=== PATIENT | female | born 1995 | race Hispanic/Latino ===

== ENCOUNTER 2018-05-24 16:34 | Emergency (ER) | payer SELFPAY ==
[2018-05-24] MEDS ORDERED: ONDANSETRON 4 MG/2 ML VIAL ONE (18:09)
[2018-05-24] MEDS ORDERED: NA CHLORIDE 0.9% 1,000 ML ONE (18:09)
[2018-05-24 18:18] LABS: Urine Blood 1+ (NEG); Urine Glucose NEGATIVE (NEG); Urine Protein NEGATIVE (NEG); Urine Specific Gravity >1.030 (1.005-1.030)
[2018-05-24 18:19] LABS: Albumin 3.8 g/dL (3.4-5.0); Bilirubin Direct 0.1 mg/dL (0-0.2); Bilirubin Total 0.2 mg/dL (0.2-1.0); Potassium 3.7 mmol/L (3.5-5.1); Protein, Total 7.4 g/dL (6.4-8.2)
[2018-05-24 18:20] LABS: Absolute Lymphocytes (CBC) 1.9 K/uL (0.7-4.9); Basophils % 0.7 % (0-1.3); Eosinophils % 1.3 % (0-4.4); Hematocrit 41.9 % (36.0-45.0); Lymphocytes % 21.1 % (15.3-44.8); MCH 31.7 pg (27.0-35.0); MCV 93.8 fL (80-100); MPV 7.8 fL (7.6-11.3); RBC Red Blood Cell Count 4.47 M/uL (3.86-4.86)
--- NOTE | 2018-05-24 19:02 | ER ---
Nurse's Notes [facility] Name: Nisreen Norman Age: 22 yrs Sex: Female : 1995 Arrival Date: 05/24/2018 Time: 16:42 Bed 15 Private MD: Diagnosis: Urinary tract infection, site not specified;Nausea and vomiting Presentation: 05/24 16:50 Presenting complaint: Patient states: abd pain, subjective fever, and vomiting since sv Wednesday. Transition of care: patient was not received from another setting of care. Onset of symptoms was May 22, 2018. Care prior to arrival: None. 16:50 Method Of Arrival: Ambulatory sv 16:50 Acuity: CAESAR 3 sv 17:15 Risk Assessment: Do you want to hurt yourself or someone else? Patient reports no rb1 desire to harm self or others. Initial Sepsis Screen: Does the patient meet any 2 criteria? No. Patient's initial sepsis screen is negative. Does the patient have a suspected source of infection? No. Patient's initial sepsis screen is negative. 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 rb1 Historical: - Allergies: 16:51 No Known Allergies; sv - Home Meds: 16:51 None [Active]; sv - PMHx: 16:51 None; sv - PSHx: 16:51 None; sv - Immunization history:: Adult Immunizations up to date. - Social history:: Smoking status: Patient/guardian denies using tobacco. - Ebola Screening: : No symptoms or risks identified at this time. Screenin:15 Abuse screen: Denies threats or abuse. Nutritional screening: No deficits noted. rb1 Tuberculosis screening: No symptoms or risk factors identified. Fall Risk None identified. Assessment: 17:15 General: Appears in no apparent distress. comfortable, Behavior is calm, cooperative, rb1 Reports Pt. did not measure her temperature but she felt like she was running an temp. Pain: Complains of pain in abdomen Pain currently is 4 out of 10 on a pain scale. Neuro: Level of Consciousness is awake, alert, obeys commands, Oriented to person, place, time, situation. Cardiovascular: Capillary refill < 3 seconds is brisk in bilateral fingers. Respiratory: Airway is patent Respiratory effort is even, unlabored, Respiratory pattern is regular, symmetrical. GI: Abdomen is flat, Reports nausea, vomiting, since Wednesday. : No signs and/or symptoms were reported regarding the genitourinary system. Derm: Skin is dry, Skin is normal, Skin temperature is warm. 18:15 Reassessment: Patient appears in no apparent distress at this time. No changes from rb1 previously documented assessment. 19:30 Reassessment: Patient appears in no apparent distress at this time. Patient is alert, aa1 oriented x 3, equal unlabored respirations, skin warm/dry/pink. NS bolus completed at this time. Discussed d/c \T\ f/u instructions with pt; denies questions or concerns at this time Patient denies pain at this time. Patient states feeling better. Vital Signs: 16:52 BP 127 / 77; Pulse 95; Resp 18; Temp 98.6; Pulse Ox 98% ; Height 5 ft. 7 in. (170.18 sv cm); Pain 5/10; 18:04 BP 123 / 82; Pulse 79; Resp 17; Pulse Ox 100% on R/A; mh5 19:30 BP 103 / 84; Pulse 77; Resp 16; Pulse Ox 99% on R/A; aa1 ED Course: 16:42 Patient arrived in ED. mr 16:51 Triage completed. sv 16:51 Arm band placed on left wrist. sv 17:15 Patient has correct armband on for positive identification. Bed in low position. Call rb1 light in reach. Side rails up X 1. Pulse ox on. NIBP on. 17:20 Timmy Arnett, DEBBIE is PHCP. pm1 17:20 Gutierrez Smith MD is Attending Physician. pm1 17:28 Sydney Martini, SHARYN is Primary Nurse. rb1 18:02 Initial lab(s) drawn, by ct, sent to lab. Urine collected: clean catch specimen, clear. mh5 Inserted saline lock: 22 gauge in right antecubital area, using aseptic technique. Blood collected. 18:03 Warm blanket given. mh5 18:20 Missed attempt(s): 22 gauge in left antecubital area. rb1 18:20 IV discontinued, intact, bleeding controlled, No redness/swelling at site. Pressure rb1 dressing applied, Discontinued 22 G right AC that was inserted by DAVID Hines tech. 18:29 Inserted saline lock: 22 gauge in right antecubital area, using aseptic technique. ph Blood collected. 19:00 Report given to SHARYN Saldana. rb1 19:30 No provider procedures requiring assistance completed. IV discontinued, intact, aa1 bleeding controlled, No redness/swelling at site. Pressure dressing applied. Administered Medications: 18:29 Drug: Zofran 4 mg Route: IVP; Site: left antecubital; ph 18:45 Follow up: Response: No adverse reaction; Nausea is decreased rb1 18:29 Drug: NS 0.9% 1000 ml Route: IV; Rate: 1000 ml; Site: left antecubital; ph 19:30 Follow up: IV Status: Completed infusion aa1 Outcome: 19:01 Discharge ordered by MD. pm1 19:30 Discharged to home ambulatory, with friend. aa1 19:30 Condition: good 19:30 Discharge instructions given to patient, Instructed on discharge instructions, follow up and referral plans. medication usage, Demonstrated understanding of instructions, follow-up care, medications, Prescriptions given X 2. 19:33 Patient left the ED. aa1 Addendum: 05/27/2018 08:01 Addendum: Culture Results: Positive urine culture. No further action required. Bacteria s s sensitive to prescribed antibiotic. Signatures: Kerry Kebede RN RN Shana Peterson RN RN aa1 Kemi Lazar mr Yaritza Cutler RN RN Nancy Kenyon RN RN Sydney Martini, SHARYN RN [facility] Timmy Arnett, DEBBIE OILSEED MEAT PRESSER pm1 Kemi Cannon [facility] Corrections: (The following items were deleted from the chart) 05/24 19:32 17:15 April, unable to obtain actual date. rb1 rb1 19:36 18:20 IV discontinued, intact, bleeding controlled, No redness/swelling at site. rb1 Pressure dressing applied, 22 G right AC rb1 19:37 18:20 Missed attempt(s): 22 gauge in right antecubital area. rb1 rb1
--- NOTE | 2018-05-24 19:02 | EDPHYS ---
Physician Documentation [facility] Name: Nisreen Norman Age: 22 yrs Sex: Female : 1995 Arrival Date: 05/24/2018 Time: 16:42 Bed 15 Private MD: ED Physician Gutierrez Smith HPI: 05/24 18:00 This 22 yrs old Female presents to ER via Ambulatory with complaints of pm1 Vomiting. 18:00 The patient presents to the emergency department with nausea, vomiting, abdominal pain. pm1 Onset: The symptoms/episode began/occurred 2 day(s) ago. Possible causes: bad food exposure, sick contacts, roommate. The symptoms are aggravated by nothing. The symptoms are alleviated by nothing. Associated signs and symptoms: Pertinent positives: nausea, vomiting, Pertinent negatives: constipation, fever. Severity of symptoms: in the emergency department the symptoms are unchanged. The patient has not experienced similar symptoms in the past. The patient has not recently seen a physician. Patient is here with her friend who is patient in the ER who is having the same symptoms of nausea and vomiting from a possible bad food exposure. 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 rb1 Historical: - Allergies: 16:51 No Known Allergies; sv - Home Meds: 16:51 None [Active]; sv - PMHx: 16:51 None; sv - PSHx: 16:51 None; sv - Immunization history:: Adult Immunizations up to date. - Social history:: Smoking status: Patient/guardian denies using tobacco. - Ebola Screening: : No symptoms or risks identified at this time. ROS: 18:00 Constitutional: Negative for fever, chills, and weight loss, Eyes: Negative for injury, pm1 pain, redness, and discharge, ENT: Negative for injury, pain, and discharge, Neck: Negative for injury, pain, and swelling, Cardiovascular: Negative for chest pain, palpitations, and edema, Respiratory: Negative for shortness of breath, cough, wheezing, and pleuritic chest pain. 18:00 Back: Negative for injury and pain, : Negative for injury, bleeding, discharge, and swelling, MS/Extremity: Negative for injury and deformity, Skin: Negative for injury, rash, and discoloration, Neuro: Negative for headache, weakness, numbness, tingling, and seizure. 18:00 Abdomen/GI: Positive for abdominal pain, nausea and vomiting, Negative for diarrhea. Exam: 18:00 Constitutional: This is a well developed, well nourished patient who is awake, alert, pm1 and in no acute distress. Head/Face: Normocephalic, atraumatic. Eyes: Pupils equal round and reactive to light, extra-ocular motions intact. Lids and lashes normal. Conjunctiva and sclera are non-icteric and not injected. Cornea within normal limits. Periorbital areas with no swelling, redness, or edema. ENT: Nares patent. No nasal discharge, no septal abnormalities noted. Tympanic membranes are normal and external auditory canals are clear. Oropharynx with no redness, swelling, or masses, exudates, or evidence of obstruction, uvula midline. Mucous membranes moist. Neck: Trachea midline, no thyromegaly or masses palpated, and no cervical lymphadenopathy. Supple, full range of motion without nuchal rigidity, or vertebral point tenderness. No Meningismus. Chest/axilla: Normal chest wall appearance and motion. Nontender with no deformity. No lesions are appreciated. Cardiovascular: Regular rate and rhythm with a normal S1 and S2. No gallops, murmurs, or rubs. Normal PMI, no JVD. No pulse deficits. Respiratory: Lungs have equal breath sounds bilaterally, clear to auscultation and percussion. No rales, rhonchi or wheezes noted. No increased work of breathing, no retractions or nasal flaring. 18:00 Back: No spinal tenderness. No costovertebral tenderness. Full range of motion. Skin: Warm, dry with normal turgor. Normal color with no rashes, no lesions, and no evidence of cellulitis. MS/ Extremity: Pulses equal, no cyanosis. Neurovascular intact. Full, normal range of motion. 18:00 Abdomen/GI: Inspection: abdomen appears normal, Bowel sounds: normal, Palpation: abdomen is soft and non-tender, in all quadrants. 18:00 Neuro: Orientation: is normal, Motor: is normal, moves all fours. Vital Signs: 16:52 BP 127 / 77; Pulse 95; Resp 18; Temp 98.6; Pulse Ox 98% ; Height 5 ft. 7 in. (170.18 sv cm); Pain 5/10; 18:04 BP 123 / 82; Pulse 79; Resp 17; Pulse Ox 100% on R/A; mh5 19:30 BP 103 / 84; Pulse 77; Resp 16; Pulse Ox 99% on R/A; aa1 MDM: 17:20 Patient medically screened. pm1 19:00 Data reviewed: vital signs. Data interpreted: Pulse oximetry: on room air is 100 %. pm1 Interpretation: normal. Counseling: I had a detailed discussion with the patient and/or guardian regarding: the historical points, exam findings, and any diagnostic results supporting the discharge/admit diagnosis, lab results, the need for outpatient follow up, to return to the emergency department if symptoms worsen or persist or if there are any questions or concerns that arise at home. 05/24 17:25 Order name: Basic Metabolic Panel; Complete Time: 18:56 pm1 05/24 17:25 Order name: CBC with Diff; Complete Time: 18:56 pm1 05/24 17:25 Order name: Hepatic Function; Complete Time: 18:56 pm1 05/24 17:25 Order name: Lipase; Complete Time: 18:56 pm1 05/24 17:55 Order name: Urine Dipstick--Ancillary (enter results); Complete Time: 18:56 bd 05/24 17:55 Order name: Urine --Ancillary (enter results); Complete Time: 18:56 bd 05/24 17:25 Order name: IV Saline Lock; Complete Time: 18:23 pm1 05/24 17:25 Order name: Labs collected and sent; Complete Time: 18:23 pm1 05/24 17:25 Order name: Urine Dipstick-Ancillary (obtain specimen); Complete Time: 18:23 pm1 05/24 18:56 Order name: Urine Microscopic Only pm1 05/24 18:57 Order name: Urine Microscopic Only; Complete Time: 22:13 EDMS 05/24 19:32 Order name: Urine Culture EDNJ 05/24 17:25 Order name: Urine Test (obtain specimen); Complete Time: 18:23 pm1 Administered Medications: 18:29 Drug: Zofran 4 mg Route: IVP; Site: left antecubital; ph 18:45 Follow up: Response: No adverse reaction; Nausea is decreased rb1 18:29 Drug: NS 0.9% 1000 ml Route: IV; Rate: 1000 ml; Site: left antecubital; ph 19:30 Follow up: IV Status: Completed infusion aa1 Disposition: 20:57 Co-signature as Attending Physician, Gutierrez Smith MD I agree with the assessment and kdr plan of care. Disposition: 05/24/18 19:01 Discharged to Home. Impression: Nausea and vomiting, Urinary tract infection, site not specified. - Condition is Stable. - Discharge Instructions: Food Poisoning, Nausea and Vomiting, Adult, Urinary Tract Infection, Adult, Viral Gastroenteritis, Adult. - Prescriptions for Zofran 4 mg Oral Tablet - take 1 tablet by ORAL route every 12 hours As needed; 20 tablet. Bactrim DS 800- 160 mg Oral Tablet - take 1 tablet by ORAL route every 12 hours for 10 days; 20 tablet. - Work release form, Medication Reconciliation Form, Thank You Letter, Antibiotic Education, Prescription Opioid Use form. - Follow up: Emergency Department; When: As needed; Reason: Worsening of condition. Follow up: Private Physician; When: 2 - 3 days; Reason: Wound Recheck, If symptoms return, Worsening of condition, Continuance of care. - Problem is new. - Symptoms have improved. Signatures: Dispatcher [employer] EDKerry Nina RN RN Shana Peterson RN RN aa1 Gutierrez Smith MD MD [facility] Nancy Kenyon RN RN Timmy Arnett, DEBBIE BACKSIDE GRINDER pm1 Sydney Martini RN rb1 Corrections: (The following items were deleted from the chart) 19:33 19:01 05/24/2018 19:01 Discharged to Home. Impression: Nausea and vomitingUrinary tract aa1 infection, site not specified. Condition is Stable. Forms are Medication Reconciliation Form, Thank You Letter, Antibiotic Education, Prescription Opioid Use. Follow up: Emergency Department; When: As needed; Reason: Worsening of condition. Follow up: Private Physician; When: 2 - 3 days; Reason: Wound Recheck, If symptoms return, Worsening of condition, Continuance of care. Problem is new. Symptoms have improved. pm1
[2018-05-24 19:31] LABS: Urine Bacteria 20-50 /HPF (<20); Urine Culture Reflex Order REFLEXED; Urine RBC <5 /HPF (NONE SEEN)
== END 2018-05-24 19:33 | disposition home or self-care (01) ==
LOC: ER 16:34
DX: N39.0 Urinary tract infection, site not specified (principal)
CPT/HCPCS: 36415; 80048; 80076; 81003; 81015; 81025; 83690; 85025; 87077; 87086; 87088; 87186; 96361; 96374; 99284; J2405; J7030

== ENCOUNTER 2018-07-19 14:57 | Emergency (ER) | payer SELFPAY ==
--- NOTE | 2018-07-19 16:08 | ER ---
Nurse's Notes [facility] Name: Nisreen Norman Age: 22 yrs Sex: Female : 1995 Arrival Date: 07/19/2018 Time: 15:21 Bed 20 Private MD: Diagnosis: Streptococcal pharyngitis Presentation: 07/19 15:26 Presenting complaint: Patient states: Sore throat x 2-3 days, fever, and N/V on first ph day of illness. Transition of care: patient was not received from another setting of care. Onset of symptoms was July 19, 2018. Risk Assessment: Do you want to hurt yourself or someone else? Patient reports no desire to harm self or others. Initial Sepsis Screen: Does the patient meet any 2 criteria? No. Patient's initial sepsis screen is negative. Care prior to arrival: Medication(s) given: Tylenol, at 1200. 15:26 Method Of Arrival: Ambulatory ph 15:26 Acuity: CAESAR 4 ph 15:32 Initial Sepsis Screen: Does the patient have a suspected source of infection? Yes: hj Other: throat. Triage Assessment: 15:32 General: Appears in no apparent distress. uncomfortable, Behavior is calm, cooperative, hj appropriate for age. Pain: Complains of pain in throat. 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 - Social history:: Smoking status: Patient/guardian denies using tobacco, Patient/guardian denies using alcohol. - Ebola Screening: : Patient negative for fever greater than or equal to 101.5 degrees Fahrenheit, and additional compatible Ebola Virus Disease symptoms Patient denies exposure to infectious person Patient denies travel to an Ebola-affected area in the 21 days before illness onset. Screenin:31 Abuse screen: Denies threats or abuse. Denies injuries from another. Nutritional hj screening: No deficits noted. Tuberculosis screening: No symptoms or risk factors identified. Fall Risk None identified. Assessment: 15:31 Pain: Complains of pain in throat. Respiratory: Airway is patent Respiratory effort is hj even, unlabored, Respiratory pattern is regular, symmetrical, Breath sounds are clear. EENT: Throat. Vital Signs: 15:27 BP 130 / 87; Pulse 98; Resp 18; Temp 98.2; Pulse Ox 100% ; Weight 63.5 kg; Height 5 ft. ph 7 in. (170.18 cm); Pain 9/10; 16:20 BP 128 / 85; Pulse 90; Resp 18; Pulse Ox 100% on R/A; hj 15:27 Body Mass Index 21.93 (63.50 kg, 170.18 cm) ph ED Course: 15:21 Patient arrived in ED. rg4 15:23 [facility]C [facility] kb 15:23 Mega Ba MD is Attending Physician. kb 15:27 Triage completed. ph 15:28 Arm band placed on. ph 15:31 Levar Lomeli, RN is Primary Nurse. hj 15:32 Patient has correct armband on for positive identification. Bed in low position. Call hj light in reach. Side rails up X 1. 16:20 No provider procedures requiring assistance completed. Patient did not have IV access hj during this emergency room visit. Administered Medications: 16:08 Drug: Augmentin 875 mg Route: PO; hj 16:18 Follow up: Response: No adverse reaction hj Outcome: 16:08 Discharge ordered by . kb 16:20 Discharged to home ambulatory. hj 16:20 Condition: stable 16:20 Discharge instructions given to patient, Instructed on discharge instructions, follow up and referral plans. medication usage, Demonstrated understanding of instructions, follow-up care, medications, Prescriptions given X 1. 16:21 Patient left the ED. hj Signatures: Rosi Cee FNP-C FNP-Ckb Hall, Patricia, RN RN Levar Lomeli, RN RN Janneth Leos rg4
--- NOTE | 2018-07-19 16:08 | EDPHYS ---
Physician Documentation [facility] Name: Nisreen Norman Age: 22 yrs Sex: Female : 1995 Arrival Date: 07/19/2018 Time: 15:21 Bed 20 Private MD: ED Physician Mega Ba HPI: 07/19 15:35 This 22 yrs old Female presents to ER via Ambulatory with complaints of Sore kb Throat. 15:35 The patient presents with sore throat. The patient describes throat pain as constant. kb Onset: The symptoms/episode began/occurred 3 day(s) ago. Severity of symptoms: At their worst the symptoms were moderate, in the emergency department the symptoms are unchanged. Modifying factors: The symptoms are alleviated by nothing, the symptoms are aggravated by swallowing, Patient's oral intake status: good. Associated signs and symptoms: Pertinent positives: Sore throat Pertinent negatives chest pain, chills, cough, diarrhea, dysphagia, earache, fever, flu-like symptoms, headache, nausea, rhinorrhea, shortness of breath, vomiting. The patient has not experienced similar symptoms in the past. The patient has not recently seen a physician. 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 - Social history:: Smoking status: Patient/guardian denies using tobacco, Patient/guardian denies using alcohol. - Ebola Screening: : Patient negative for fever greater than or equal to 101.5 degrees Fahrenheit, and additional compatible Ebola Virus Disease symptoms Patient denies exposure to infectious person Patient denies travel to an Ebola-affected area in the 21 days before illness onset. ROS: 15:35 Constitutional: Negative for fever, chills, and weight loss, Cardiovascular: Negative kb for chest pain, palpitations, and edema, Respiratory: Negative for shortness of breath, cough, wheezing, and pleuritic chest pain, Abdomen/GI: Negative for abdominal pain, nausea, vomiting, diarrhea, and constipation, Back: Negative for injury and pain, : Negative for injury, bleeding, discharge, and swelling, MS/Extremity: Negative for injury and deformity, Skin: Negative for injury, rash, and discoloration, Neuro: Negative for headache, weakness, numbness, tingling, and seizure. 15:35 ENT: Positive for sore throat. Exam: 15:35 Constitutional: This is a well developed, well nourished patient who is awake, alert, kb and in no acute distress. Head/Face: Normocephalic, atraumatic. Neck: Trachea midline, no thyromegaly or masses palpated, and no cervical lymphadenopathy. Supple, full range of motion without nuchal rigidity, or vertebral point tenderness. No Meningismus. Chest/axilla: Normal chest wall appearance and motion. Nontender with no deformity. No lesions are appreciated. Cardiovascular: Regular rate and rhythm with a normal S1 and S2. No gallops, murmurs, or rubs. Normal PMI, no JVD. No pulse deficits. Respiratory: Lungs have equal breath sounds bilaterally, clear to auscultation and percussion. No rales, rhonchi or wheezes noted. No increased work of breathing, no retractions or nasal flaring. Abdomen/GI: Soft, non-tender, with normal bowel sounds. No distension or tympany. No guarding or rebound. No evidence of tenderness throughout. Skin: Warm, dry with normal turgor. Normal color with no rashes, no lesions, and no evidence of cellulitis. MS/ Extremity: Pulses equal, no cyanosis. Neurovascular intact. Full, normal range of motion. Neuro: Awake and alert, GCS 15, oriented to person, place, time, and situation. Cranial nerves II-XII grossly intact. Motor strength 5/5 in all extremities. Sensory grossly intact. Cerebellar exam normal. Normal gait. 15:35 ENT: Posterior pharynx: Airway: normal, no evidence of obstruction, Tonsils: bilaterally enlarged, with erythema, Uvula: normal, midline, swelling, that is mild, erythema, that is marked, exudate, is not appreciated. Vital Signs: 15:27 BP 130 / 87; Pulse 98; Resp 18; Temp 98.2; Pulse Ox 100% ; Weight 63.5 kg; Height 5 ft. ph 7 in. (170.18 cm); Pain 9/10; 16:20 BP 128 / 85; Pulse 90; Resp 18; Pulse Ox 100% on R/A; hj 15:27 Body Mass Index 21.93 (63.50 kg, 170.18 cm) ph MDM: 15:23 Patient medically screened. kb 15:38 Data reviewed: vital signs, nurses notes. Data interpreted: Pulse oximetry: on room air kb is 100 %. Interpretation: normal. 16:07 Counseling: I had a detailed discussion with the patient and/or guardian regarding: the kb historical points, exam findings, and any diagnostic results supporting the discharge/admit diagnosis, lab results, the need for outpatient follow up, a family practitioner, to return to the emergency department if symptoms worsen or persist or if there are any questions or concerns that arise at home. 07/19 15:32 Order name: Strep; Complete Time: 16:07 kb Administered Medications: 16:08 Drug: Augmentin 875 mg Route: PO; 16:18 Follow up: Response: No adverse reaction Disposition: 17:04 Co-signature as Attending Physician, Mega Ba MD available for consultation at ps1 all times . Disposition: 07/19/18 16:08 Discharged to Home. Impression: Streptococcal pharyngitis. - Condition is Stable. - Discharge Instructions: Strep Throat, [id number]. - Prescriptions for Augmentin 875- 125 mg Oral Tablet - take 1 tablet by ORAL route every 12 hours for 10 days; 20 tablet. - Medication Reconciliation Form, Thank You Letter, Antibiotic Education, Prescription Opioid Use form. - Follow up: Emergency Department; When: As needed; Reason: Worsening of condition. Follow up: Private Physician; When: 2 - 3 days; Reason: Recheck today's complaints, Continuance of care, Re-evaluation by your physician. Signatures: Dispatcher [employer] Rosi Calles, MUSEUM DIRECTOR-C MUSEUM DIRECTOR-CkNancy Parsons RN RN Levar Lemos RN RN Mega Hoffmann MD MD ps1 Corrections: (The following items were deleted from the chart) 16:21 16:08 07/19/2018 16:08 Discharged to Home. Impression: Streptococcal pharyngitis. hj Condition is Stable. Forms are Medication Reconciliation Form, Thank You Letter, Antibiotic Education, Prescription Opioid Use. Follow up: Emergency Department; When: As needed; Reason: Worsening of condition. Follow up: Private Physician; When: 2 - 3 days; Reason: Recheck today's complaints, Continuance of care, Re-evaluation by your physician. kb
[2018-07-19] MEDS ORDERED: AMOX/K CLAV 875 MG TAB ONE (16:23)
== END 2018-07-19 16:21 | disposition home or self-care (01) ==
LOC: ER 14:57
DX: J02.0 Streptococcal pharyngitis (principal)
CPT/HCPCS: 87081; 99283

== ENCOUNTER 2018-09-22 11:16 | Emergency (ER) | payer SELFPAY ==
[2018-09-22 14:38] LABS: BUN Blood Urea Nitrogen 11 mg/dL (7-18); Bicarbonate 24 mmol/L (21-32); Glucose Level 79 mg/dL (74-106); Potassium 3.7 mmol/L (3.5-5.1); Sodium Level 138 mmol/L (136-145)
[2018-09-22] MEDS ORDERED: NA CHLORIDE 0.9% 1,000 ML ONE (14:41)
[2018-09-22 16:03] LABS: Urine Bacteria <20 /HPF (<20); Urine Culture Reflex Order NOT NEEDED; Urine Mucus 1+ /HPF (NONE SEEN); Urine RBC <5 /HPF (NONE SEEN)
--- NOTE | 2018-09-22 16:31 | ER ---
Nurse's Notes [facility] Name: Nisreen Norman Age: 22 yrs Sex: Female : 1995 Arrival Date: 09/22/2018 Time: 11:29 Bed 24 Private MD: Diagnosis: 1st trimester intrauterine Presentation: 09/22 11:29 Presenting complaint: Abdominal cramping x 2 days, N/V today. Tolerating fluids. Denies hb fever/diarrhea. Transition of care: patient was not received from another setting of care. Onset of symptoms was September 21, 2018. Risk Assessment: Do you want to hurt yourself or someone else? Patient reports no desire to harm self or others. Care prior to arrival: None. 11:29 Method Of Arrival: Ambulatory hb 11:29 Acuity: CAESAR 3 hb 14:45 Initial Sepsis Screen: Does the patient meet any 2 criteria? No. Patient's initial ch sepsis screen is negative. Does the patient have a suspected source of infection? No. Patient's initial sepsis screen is negative. Triage Assessment: 17:00 General: Appears in no apparent distress. comfortable, Behavior is calm, cooperative, ch appropriate for age. Pain: Denies pain. Neuro: No deficits noted. Level of Consciousness is awake, alert, obeys commands, Oriented to person, place, time, situation. EXPRESS CLERK: 11:30 LMP 09/16/2018 hb Historical: - Allergies: 11:31 No Known Allergies; hb - Home Meds: 11:31 Unable to obtain [Active]; hb - PMHx: 11:31 None; hb - PSHx: 11:31 Appendectomy; hb - Immunization history:: Adult Immunizations up to date. - Social history:: Smoking status: Patient/guardian denies using tobacco. - Ebola Screening: : No symptoms or risks identified at this time. Screenin:18 Abuse screen: Denies threats or abuse. Denies injuries from another. Nutritional ch screening: No deficits noted. Tuberculosis screening: No symptoms or risk factors identified. Fall Risk None identified. Assessment: 13:18 Reassessment: Patient appears in no apparent distress at this time. Patient and/or ch family updated on plan of care and expected duration. Pain level reassessed. Patient is alert, oriented x 3, equal unlabored respirations, skin warm/dry/pink. Pain: Complains of pain in right lower quadrant and left lower quadrant Pain currently is 6 out of 10 on a pain scale. Pain began suddenly. Neuro: No deficits noted. Respiratory: Airway is patent Respiratory effort is even, unlabored, Breath sounds are clear bilaterally. GI: Bowel sounds present X 4 quads. Abd is soft X 4 quads Abdomen is tender to palpation in right lower quadrant and left lower quadrant. : No signs and/or symptoms were reported regarding the genitourinary system. Derm: Skin is pink, warm \T\ dry. Musculoskeletal: No signs and/or symptoms reported regarding the musculoskeletal system. 14:18 Reassessment: Patient appears in no apparent distress at this time. No changes from previously documented assessment. Patient and/or family updated on plan of care and expected duration. Pain level reassessed. Patient is alert, oriented x 3, equal unlabored respirations, skin warm/dry/pink. 15:27 Reassessment: Patient appears in no apparent distress at this time. Patient and/or ch family updated on plan of care and expected duration. Pain level reassessed. Patient is alert, oriented x 3, equal unlabored respirations, skin warm/dry/pink. Patient states feeling better. Patient states symptoms have improved. Vital Signs: 11:30 BP 133 / 85; Pulse 81; Resp 16; Temp 97.4; Pulse Ox 100% on R/A; Pain 7/10; hb 13:10 BP 112 / 60; Pulse 72; Resp 16; Temp 98.1; Pulse Ox 99% on R/A; Pain 2/10; ch 14:47 BP 104 / 62; Pulse 68; Resp 14; Pulse Ox 99% on R/A; Pain 2/10; ch 15:27 BP 101 / 68; Pulse 77; Resp 14; Temp 98.8; Pulse Ox 99% on R/A; Pain 0/10; ch ED Course: 11:29 Patient arrived in ED. hb 11:30 Triage completed. hb 11:30 Arm band placed on. hb 12:58 Kasey Cantu FNP-C [facility]. snw 12:58 Gutierrez Smith MD is Attending Physician. snw 13:04 Vicky Hernandez RN is Primary Nurse. ch 13:18 No apparent distress. Resting quietly. ch 13:18 Patient has correct armband on for positive identification. Placed in gown. Bed in low ch position. Call light in reach. Side rails up X 1. Pulse ox on. NIBP on. Warm blanket given. 13:19 Urine Culture Sent. ds4 13:19 Urine Microscopic Only Sent. ds4 14:19 Inserted saline lock: 18 gauge in right antecubital area, using aseptic technique. ch Blood collected. 14:38 Urine --Ancillary (enter results) Sent. ds4 14:38 Urine Dipstick--Ancillary (enter results) Sent. ds4 16:17 US Transvaginal Ob In Process Unspecified. EDMS 16:40 No provider procedures requiring assistance completed. IV discontinued, intact, ch bleeding controlled, No redness/swelling at site. Administered Medications: 14:30 Drug: NS 0.9% 1000 ml Route: IV; Rate: 1 bolus; Site: left antecubital; 15:28 Follow up: IV Status: Completed infusion; IV Intake: 1000ml ch Intake: 15:28 IV: 1000ml; Total: 1000ml. Outcome: 16:31 Discharge ordered by . snw 16:45 Discharged to home ambulatory, with family. 16:45 Condition: stable 16:45 Discharge instructions given to patient, family, Instructed on discharge instructions, follow up and referral plans. medication usage, Demonstrated understanding of instructions, follow-up care, medications. 16:50 Patient left the ED. Signatures: Dispatcher [employer] EDVT Vicky Hernandez RN RN Kasey Cantu, BUNCH TRIMMER MOLD-C BUNCH TRIMMER MOLD-Csnw Sanchez Ervin ds4 Alexa Murphy RN RN hb Corrections: (The following items were deleted from the chart) 14:47 13:10 BP 104 / 62; Pulse 68bpm; Resp 14bpm; Pulse Ox 99% RA; Pain 2/10; ch
--- NOTE | 2018-09-22 16:31 | RAD REPORT ---
EXAM DESCRIPTION: US - Transvaginal OB - 09/22/2018 4:14 pm CLINICAL HISTORY: with abdominal pain COMPARISON: None. FINDINGS: The uterus measures 8 x 5 x 5 centimeters. A gestational sac is present within the endome trium. Within this is a yolk sac and pole with a crown-rump length 0.3 centimeters. Cardiac act ivity 123 beats per minute The right ovary is normal in size and echotexture. A 2.5 centimeter hemorrhagic left ovarian cyst is suspected. . No significant free fluid is seen. Adnexal appear unremarkable IMPRESSION: Single live intrauterine with an estimated gestational age 6 weeks 1 day BLAISE 05/17/2019
--- NOTE | 2018-09-22 16:31 | EDPHYS ---
Physician Documentation [facility] Name: Nisreen Norman Age: 22 yrs Sex: Female : 1995 Arrival Date: 09/22/2018 Time: 11:29 Bed 24 Private MD: ED Physician Gutierrez Smith HPI: 09/22 20:24 This 22 yrs old Female presents to ER via Ambulatory with complaints of snw Abdominal Pain. 20:24 The patient presents with cramping left lower quad. Onset: The symptoms/episode snw began/occurred gradually, 2 day(s) ago. The symptoms do not radiate. Associated signs and symptoms: Pertinent positives: nausea and vomiting. The symptoms are described as crampy. Severity of pain: At its worst the pain was mild. The patient has not experienced similar symptoms in the past. The patient has not recently seen a physician. SHOT BAGGER: 11:30 LMP 09/16/2018 hb Historical: - Allergies: 11:31 No Known Allergies; hb - Home Meds: 11:31 Unable to obtain [Active]; hb - PMHx: 11:31 None; hb - PSHx: 11:31 Appendectomy; hb - Immunization history:: Adult Immunizations up to date. - Social history:: Smoking status: Patient/guardian denies using tobacco. - Ebola Screening: : No symptoms or risks identified at this time. ROS: 20:18 Constitutional: Negative for fever, chills, and weight loss, Eyes: Negative for injury, snw pain, redness, and discharge, ENT: Negative for injury, pain, and discharge, Neck: Negative for injury, pain, and swelling, Cardiovascular: Negative for chest pain, palpitations, and edema, Respiratory: Negative for shortness of breath, cough, wheezing, and pleuritic chest pain, Back: Negative for injury and pain, : Negative for injury, bleeding, discharge, and swelling, MS/Extremity: Negative for injury and deformity, Skin: Negative for injury, rash, and discoloration, Neuro: Negative for headache, weakness, numbness, tingling, and seizure. 20:18 Abdomen/GI: Positive for nausea and vomiting, abdominal cramps, of the left lower quadrant. Exam: 20:18 Constitutional: This is a well developed, well nourished patient who is awake, alert, snw and in no acute distress. Head/Face: Normocephalic, atraumatic. Eyes: Pupils equal round and reactive to light, extra-ocular motions intact. Lids and lashes normal. Conjunctiva and sclera are non-icteric and not injected. Cornea within normal limits. Periorbital areas with no swelling, redness, or edema. ENT: Nares patent. No nasal discharge, no septal abnormalities noted. Tympanic membranes are normal and external auditory canals are clear. Oropharynx with no redness, swelling, or masses, exudates, or evidence of obstruction, uvula midline. Mucous membranes moist. Neck: Trachea midline, no thyromegaly or masses palpated, and no cervical lymphadenopathy. Supple, full range of motion without nuchal rigidity, or vertebral point tenderness. No Meningismus. Chest/axilla: Normal chest wall appearance and motion. Nontender with no deformity. No lesions are appreciated. Cardiovascular: Regular rate and rhythm with a normal S1 and S2. No gallops, murmurs, or rubs. Normal PMI, no JVD. No pulse deficits. Respiratory: Lungs have equal breath sounds bilaterally, clear to auscultation and percussion. No rales, rhonchi or wheezes noted. No increased work of breathing, no retractions or nasal flaring. Back: No spinal tenderness. No costovertebral tenderness. Full range of motion. Skin: Warm, dry with normal turgor. Normal color with no rashes, no lesions, and no evidence of cellulitis. MS/ Extremity: Pulses equal, no cyanosis. Neurovascular intact. Full, normal range of motion. Neuro: Awake and alert, GCS 15, oriented to person, place, time, and situation. Cranial nerves II-XII grossly intact. Motor strength 5/5 in all extremities. Sensory grossly intact. Cerebellar exam normal. Normal gait. Psych: Awake, alert, with orientation to person, place and time. Behavior, mood, and affect are within normal limits. 20:18 Abdomen/GI: Inspection: abdomen appears normal, Bowel sounds: normal, in all quadrants, Palpation: soft, mild abdominal tenderness, in the left lower quadrant. Vital Signs: 11:30 BP 133 / 85; Pulse 81; Resp 16; Temp 97.4; Pulse Ox 100% on R/A; Pain 7/10; hb 13:10 BP 112 / 60; Pulse 72; Resp 16; Temp 98.1; Pulse Ox 99% on R/A; Pain 2/10; ch 14:47 BP 104 / 62; Pulse 68; Resp 14; Pulse Ox 99% on R/A; Pain 2/10; ch 15:27 BP 101 / 68; Pulse 77; Resp 14; Temp 98.8; Pulse Ox 99% on R/A; Pain 0/10; ch MDM: 14:29 Patient medically screened. snw 16:36 Data reviewed: vital signs, nurses notes. Data interpreted: Pulse oximetry: on room air snw is 99 %. Interpretation: normal. Counseling: I had a detailed discussion with the patient and/or guardian regarding: the historical points, exam findings, and any diagnostic results supporting the discharge/admit diagnosis, lab results, radiology results, the need for outpatient follow up, to return to the emergency department if symptoms worsen or persist or if there are any questions or concerns that arise at home. Special discussion: Based on the patient's Hx, exam, and Dx evaluation, there is no indication for emergent surgery or inpatient Tx. It is understood by the patient/guardian that if the Sx's persist or worsen they need to return immediately for re-evaluation. Based on the history and exam findings, there is no indication for further emergent testing or inpatient evaluation. I discussed with the patient/guardian the need to see the OB Gyne specialist for further evaluation of the symptoms. 09/22 12:39 Order name: Urine Culture [facility] 09/22 12:39 Order name: Urine Microscopic Only; Complete Time: 16:11 [facility] 09/22 13:17 Order name: Urine Dipstick--Ancillary (enter results) [facility] 09/22 13:19 Order name: Urine --Ancillary (enter results) 4 09/22 13:52 Order name: Abo/rh Typing; Complete Time: 15:37 [facility] 09/22 13:52 Order name: Basic Metabolic Panel; Complete Time: 14:39 [facility] 09/22 12:39 Order name: Urine Test (obtain specimen); Complete Time: 13:16 [facility] 09/22 12:39 Order name: Urine Dipstick-Ancillary (obtain specimen); Complete Time: 13:16 [facility] 09/22 13:52 Order name: CBC with Diff [facility] 09/22 13:52 Order name: IV Saline Lock; Complete Time: 14:38 snw 09/22 13:52 Order name: Labs collected and sent; Complete Time: 14:38 snw 09/22 15:37 Order name: US Transvaginal Ob; Complete Time: 16:37 snw 09/22 16:35 Order name: ABO/RH no charge; Complete Time: 16:37 [facility] 09/22 13:52 Order name: NPO; Complete Time: 14:38 snw Administered Medications: 14:30 Drug: NS 0.9% 1000 ml Route: IV; Rate: 1 bolus; Site: left antecubital; ch 15:28 Follow up: IV Status: Completed infusion; IV Intake: 1000ml ch Disposition: 09/22/18 16:31 Discharged to Home. Impression: 1st trimester intrauterine . - Condition is Stable. - Discharge Instructions: Dehydration, Adult, First Trimester of , Rehydration, Adult. - Prescriptions for Vitamin 27- 0.8 mg Oral Tablet - take 1 tablet by ORAL route once daily; 60 tablet. - Work release form, Medication Reconciliation Form, Thank You Letter, Antibiotic Education, Prescription Opioid Use form. - Follow up: Private Physician; When: 1 week; Reason: Recheck today's complaints, Continuance of care, Re-evaluation by your physician. Follow up: Emergency Department; When: As needed; Reason: Worsening of condition. - Notes: 5 weeks and 6 days by ultrasound Addendum: 09/29/2018 09:31 Co-signature as Attending Physician, Gutierrez Smith MD I agree with the assessment and k dr plan of care. Signatures: Dispatcher [employer] Vicky Ricketts, RN SHARYN Gutierrez Smith MD MD [facility] Kasey Cantu, YOGA COORDINATOR-C YOGA COORDINATOR-Csnw Alexa Murphy, SHARYN RN Corrections: (The following items were deleted from the chart) 09/22 16:50 16:31 09/22/2018 16:31 Discharged to Home. Impression: 1st trimester intrauterine ch . Condition is Stable. Forms are Medication Reconciliation Form, Thank You Letter, Antibiotic Education, Prescription Opioid Use. Follow up: Private Physician; When: 1 week; Reason: Recheck today's complaints, Continuance of care, Re-evaluation by your physician. Follow up: Emergency Department; When: As needed; Reason: Worsening of condition. snw
[2018-09-22 18:56] LABS: Urine Blood NEGATIVE (NEG); Urine Glucose NEGATIVE (NEG); Urine Protein NEGATIVE (NEG); Urine Specific Gravity >1.030 (1.005-1.030); Urine pH 5.5 (5.0-7.0)
== END 2018-09-22 16:50 | disposition home or self-care (01) ==
LOC: ER 11:16
DX: O26.891 Other specified pregnancy related conditions, first trimester (principal); R10.32 Left lower quadrant pain; Z3A.01 Less than 8 weeks gestation of pregnancy
CPT/HCPCS: 36415; 76817; 80048; 81003; 81015; 81025; 85025; 86900; 86901; 87086; 87088; J7030

== ENCOUNTER 2018-09-26 17:35 | Emergency (ER) | payer SELFPAY ==
[2018-09-26 18:50] LABS: Absolute Lymphocytes (CBC) 1.8 K/uL (0.7-4.9); Absolute Monocytes 0.8 K/uL (0.1-1.3); Absolute Neutrophil 6.4 K/uL (1.8-8.0); Basophils % 0.5 % (0-1.3); Eosinophils % 0.7 % (0-4.4); Hematocrit 39.6 % (36.0-45.0); MPV 7.6 fL (7.6-11.3); Monocytes % 9.3 % (3.3-12.3); RBC Red Blood Cell Count 4.33 M/uL (3.86-4.86)
[2018-09-26 19:09] LABS: BUN Blood Urea Nitrogen 9 mg/dL (7-18); Bicarbonate 26 mmol/L (21-32); Glucose Level 83 mg/dL (74-106); Sodium Level 138 mmol/L (136-145)
[2018-09-26 19:37] LABS: HCG, Quantitative 27801 mIU/mL (1-3)
[2018-09-26 20:18] LABS: Urine Blood 2+ (NEG); Urine Glucose NEGATIVE (NEG); Urine Protein NEGATIVE (NEG); Urine Specific Gravity 1.025 (1.005-1.030)
--- NOTE | 2018-09-26 21:01 | RAD REPORT ---
EXAM DESCRIPTION: US - TRANSVAG OB - 09/26/2018 8:28 pm CLINICAL HISTORY: vaginal bleed COMPARISON: Transvaginal OB dated 09/22/2018 FINDINGS: A single gestational sac is seen within the uterus. The shape of the sac is within normal limits for gestational age. Within the sac is a single pole with crown-rump length of 5.6 mm, c orrelating to estimated gestational age of 6 weeks 2 days. Estimated date of delivery is 05/20/2019. Heart rate is 129 BPM, normal.. The placenta is not yet developed due to early gestational age. The maternal adnexa and ovaries are within normal limits. Normal Doppler blood flow was demonstrated to both ovaries. 9 x 5 mm inferiorly located subchorionic bleed. IMPRESSION: Single live early intrauterine gestation with estimated gestational age of 6 weeks 2 day s, BLAISE 05/20/2019. 9 x 5 mm inferior subchorionic bleed.
--- NOTE | 2018-09-26 21:31 | ER ---
Nurse's Notes [facility] Name: Nisreen Norman Age: 22 yrs Sex: Female : 1995 Arrival Date: 09/26/2018 Time: 17:36 Bed 14 Private MD: out of town, doctor Diagnosis: Other abnormal uterine and vaginal bleeding Presentation: 09/26 17:39 Presenting complaint: Patient states: dark red vaginal bleeding started 10 mins ago. sv c/o abd cramping. Transition of care: patient was not received from another setting of care. Onset of symptoms was September 26, 2018. Care prior to arrival: None. 17:39 Method Of Arrival: Ambulatory sv 17:39 Acuity: CAESAR 3 sv 18:47 Risk Assessment: Do you want to hurt yourself or someone else? Patient reports no ph desire to harm self or others. Initial Sepsis Screen: Does the patient meet any 2 criteria? No. Patient's initial sepsis screen is negative. Does the patient have a suspected source of infection? No. Patient's initial sepsis screen is negative. Historical: - Allergies: 17:40 No Known Allergies; sv - PSHx: 17:40 Appendectomy; sv - Immunization history:: Adult Immunizations unknown. - Social history:: Patient/guardian denies using alcohol, street drugs, The patient lives with family, Smoking status: Patient/guardian denies using tobacco. - Family history:: not pertinent. - Ebola Screening: : No symptoms or risks identified at this time. Screenin:46 Abuse screen: Denies threats or abuse. Denies injuries from another. Nutritional ph screening: No deficits noted. Tuberculosis screening: No symptoms or risk factors identified. Fall Risk None identified. Assessment: 18:30 General: Appears in no apparent distress. uncomfortable, well groomed, Behavior is ph calm, cooperative, appropriate for age. Pain: Complains of pain in suprapubic area. Neuro: Level of Consciousness is awake, alert, obeys commands, Oriented to person, place, time, situation. Cardiovascular: Capillary refill < 3 seconds in bilateral fingers Patient's skin is warm and dry. Respiratory: Airway is patent Respiratory effort is even, unlabored, Respiratory pattern is regular, symmetrical. GI: Patient currently denies diarrhea, nausea, vomiting. : Reports cramping, in bilateral lower quadrant(s) vaginal bleeding that is brown, light flow, w/ small clots reported. Derm: Skin is intact, is healthy with good turgor, Skin is pink, warm \T\ dry. Musculoskeletal: Circulation, motion, and sensation intact. Range of motion: intact in all extremities. 20:04 Reassessment: Patient appears in no apparent distress at this time. Patient and/or aa1 family updated on plan of care and expected duration. Pain level reassessed. Patient is alert, oriented x 3, equal unlabored respirations, skin warm/dry/pink. Pt awaiting u/s. 21:09 Reassessment: Patient appears in no apparent distress at this time. Patient and/or aa1 family updated on plan of care and expected duration. Pain level reassessed. Patient is alert, oriented x 3, equal unlabored respirations, skin warm/dry/pink. Awaiting provider reassessment. 21:50 Reassessment: Patient appears in no apparent distress at this time. Patient is alert, aa1 oriented x 3, equal unlabored respirations, skin warm/dry/pink. Discussed d/c \T\ f/u instructions with pt \T\ spouse; denies questions or concerns at this time. Vital Signs: 17:40 BP 150 / 97; Pulse 97; Resp 20; Temp 98; Pulse Ox 98% ; Weight 79.38 kg; Height 5 ft. 7 sv in. (170.18 cm); 18:48 BP 116 / 77; Pulse 72; Resp 16; Pulse Ox 99% on R/A; ph 19:45 BP 112 / 73; Pulse 75; Resp 16; Pulse Ox 100% on R/A; Pain 0/10; aa1 21:09 BP 108 / 70; Pulse 61; Resp 16; Pulse Ox 99% on R/A; Pain 0/10; aa1 17:40 Body Mass Index 27.41 (79.38 kg, 170.18 cm) sv ED Course: 17:36 Patient arrived in ED. sb2 17:36 out of town, doctor is Private Physician. sb2 17:40 Triage completed. sv 17:40 Arm band placed on. sv 17:41 Oscar Byrne MD is Attending Physician. ma2 17:43 Nancy Kenyon RN is Primary Nurse. ph 18:43 Initial lab(s) drawn, by me, sent to lab. Urine collected: clean catch specimen, aakash ph colored. Inserted saline lock: 22 gauge in right antecubital area, using aseptic technique. Blood collected. 18:47 Patient has correct armband on for positive identification. Bed in low position. Call ph light in reach. Side rails up X 1. Pulse ox on. NIBP on. Door closed. Noise minimized. Lights dimmed. Warm blanket given. 20:28 TRANSVAG OB In Process Unspecified. EDMS 21:50 No provider procedures requiring assistance completed. IV discontinued, intact, aa1 bleeding controlled, No redness/swelling at site. Pressure dressing applied. Administered Medications: No medications were administered Point of Care Testing: Urine : 18:48 hCG Reading: Positive; ph Outcome: 21:30 Discharge ordered by . ma2 21:50 Discharged to home ambulatory, with significant other. aa1 21:50 Condition: good 21:50 Discharge instructions given to patient, significant other, Instructed on discharge instructions, follow up and referral plans. Demonstrated understanding of instructions, follow-up care. 21:51 Patient left the ED. aa1 Signatures: Dispatcher [employer] Kerry Steven RN RN Shana Reyes RN RN aa1 Nancy Kenyon RN RN ph Oscar Byrne MD MD ma2 La Stinson
--- NOTE | 2018-09-26 21:31 | EDPHYS ---
Physician Documentation [facility] Name: Nisreen Norman Age: 22 yrs Sex: Female : 1995 Arrival Date: 09/26/2018 Time: 17:36 Bed 14 Private MD: out of town, doctor ED Physician Oscar Byrne HPI: 09/26 17:49 This 22 yrs old Female presents to ER via Ambulatory with complaints of ma2 Vaginal Bleeding, + Preg <12wks. 17:49 The patient presents to the emergency department with vaginal bleeding, that is light. ma2 The estimated gestational age is 4 weeks. course: care: none. Associated signs and symptoms: Pertinent negatives: chest pain, diarrhea, fever, nausea, seizure, shortness of breath. The patient has experienced a previous episode. Historical: - Allergies: 17:40 No Known Allergies; sv - PSHx: 17:40 Appendectomy; sv - Immunization history:: Adult Immunizations unknown. - Social history:: Patient/guardian denies using alcohol, street drugs, The patient lives with family, Smoking status: Patient/guardian denies using tobacco. - Family history:: not pertinent. - Ebola Screening: : No symptoms or risks identified at this time. ROS: 17:49 Constitutional: Negative for fever, chills, and weight loss, ENT: Negative for injury, ma2 pain, and discharge, Neck: Negative for injury, pain, and swelling, Cardiovascular: Negative for chest pain, palpitations, and edema, Respiratory: Negative for shortness of breath, cough, wheezing, and pleuritic chest pain, Abdomen/GI: Negative for abdominal pain, nausea, diarrhea, and constipation, MS/Extremity: Negative for injury and deformity, Neuro: Negative for headache, weakness, numbness, tingling, and seizure. 17:49 : Positive for vaginal bleeding, Negative for urinary symptoms, small amounts, pelvic ma2 pain, burning with urination, vaginal discharge, vaginal itching, missed period, acute changes. 17:49 All other systems are negative. Exam: 17:49 Constitutional: This is a well developed, well nourished patient who is awake, alert, ma2 and in no acute distress. Chest/axilla: Normal chest wall appearance and motion. Nontender with no deformity. No lesions are appreciated. Cardiovascular: Regular rate and rhythm with a normal S1 and S2. No gallops, murmurs, or rubs. Normal PMI, no JVD. No pulse deficits. Respiratory: Lungs have equal breath sounds bilaterally, clear to auscultation and percussion. No rales, rhonchi or wheezes noted. No increased work of breathing, no retractions or nasal flaring. Abdomen/GI: Soft, non-tender, with normal bowel sounds. No distension or tympany. No guarding or rebound. No evidence of tenderness throughout. Skin: Warm, dry with normal turgor. Normal color with no rashes, no lesions, and no evidence of cellulitis. MS/ Extremity: Pulses equal, no cyanosis. Neurovascular intact. Full, normal range of motion. Neuro: Awake and alert, GCS 15, oriented to person, place, time, and situation. Cranial nerves II-XII grossly intact. Motor strength 5/5 in all extremities. Sensory grossly intact. Cerebellar exam normal. Normal gait. Vital Signs: 17:40 BP 150 / 97; Pulse 97; Resp 20; Temp 98; Pulse Ox 98% ; Weight 79.38 kg; Height 5 ft. 7 sv in. (170.18 cm); 18:48 BP 116 / 77; Pulse 72; Resp 16; Pulse Ox 99% on R/A; ph 19:45 BP 112 / 73; Pulse 75; Resp 16; Pulse Ox 100% on R/A; Pain 0/10; aa1 21:09 BP 108 / 70; Pulse 61; Resp 16; Pulse Ox 99% on R/A; Pain 0/10; aa1 17:40 Body Mass Index 27.41 (79.38 kg, 170.18 cm) sv MDM: 17:41 Patient medically screened. ma2 17:49 Differential diagnosis: ectopic . ma2 21:29 Data reviewed: vital signs, nurses notes, snf records, lab test result(s). ma2 Counseling: I had a detailed discussion with the patient and/or guardian regarding: the historical points, exam findings, and any diagnostic results supporting the discharge/admit diagnosis, the presence of at least one elevated blood pressure reading (>120/80) during this emergency department visit. Response to treatment: the patient's symptoms have resolved after treatment. 09/26 17:41 Order name: Quantitative Hcg; Complete Time: 19:41 ma2 09/26 17:41 Order name: Abo/rh Typing; Complete Time: 21:03 [facility] 09/26 17:41 Order name: Basic Metabolic Panel; Complete Time: 19:41 [facility] 09/26 17:41 Order name: CBC with Diff; Complete Time: 19:15 [facility] 09/26 18:48 Order name: Urine Dipstick--Ancillary (enter results); Complete Time: 20:36 09/26 18:48 Order name: Urine --Ancillary (enter results); Complete Time: 20:36 09/26 17:41 Order name: Urine Test (obtain specimen); Complete Time: 18:53 [facility] 09/26 17:41 Order name: IV Saline Lock; Complete Time: 18:53 [facility] 09/26 17:41 Order name: Labs collected and sent; Complete Time: 18:53 [facility] 09/26 17:41 Order name: NPO; Complete Time: 18:53 [facility] 09/26 17:41 Order name: Urine Dipstick-Ancillary (obtain specimen); Complete Time: 18:53 [facility] 09/26 20:28 Order name: TRANSVAG OB; Complete Time: 21:03 EDMS Administered Medications: No medications were administered Point of Care Testing: Urine : 18:48 hCG Reading: Positive; ph Disposition: 09/26/18 21:30 Discharged to Home. Impression: Other abnormal uterine and vaginal bleeding. - Condition is Stable. - Discharge Instructions: Threatened Miscarriage. - Work release form, Medication Reconciliation Form, Thank You Letter, Antibiotic Education, Prescription Opioid Use form. - Follow up: Private Physician; When: Tomorrow; Reason: Continuance of care. Signatures: Dispatcher [employer] [facility] Kerry Kebede RN SHARYN Shana Peetrson RN RN aa1 Nancy Kenyon RN RN Oscar Byrne MD MD ma2 Corrections: (The following items were deleted from the chart) 20:28 19:43 OB Complete+US.RAD.PEEWEEZ ordered. [facility] 21:51 21:30 09/26/2018 21:30 Discharged to Home. Impression: Other abnormal uterine and aa1 vaginal bleeding. Condition is Stable. Forms are Medication Reconciliation Form, Thank You Letter, Antibiotic Education, Prescription Opioid Use. Follow up: Private Physician; When: Tomorrow; Reason: Continuance of care. ma2
== END 2018-09-26 21:51 | disposition home or self-care (01) ==
LOC: ER 17:35
DX: O20.9 Hemorrhage in early pregnancy, unspecified (principal); Z3A.01 Less than 8 weeks gestation of pregnancy
CPT/HCPCS: 36415; 76813; 80048; 81003; 81025; 84702; 85025; 86900; 86901; 99284

== ENCOUNTER 2018-10-31 11:50 | Emergency (ER) | payer OTHER ==
[2018-10-31 13:31] LABS: Absolute Lymphocytes (CBC) 1.7 K/uL (0.7-4.9); Absolute Monocytes 0.6 K/uL (0.1-1.3); Absolute Neutrophil 5.3 K/uL (1.8-8.0); Basophils % 0.3 % (0-1.3); Eosinophils % 0.7 % (0-4.4); Hematocrit 37.8 % (36.0-45.0); Lymphocytes % 22.4 % (15.3-44.8); MPV 7.6 fL (7.6-11.3); Monocytes % 7.6 % (3.3-12.3); RBC Red Blood Cell Count 4.24 M/uL (3.86-4.86)
[2018-10-31] MEDS ORDERED: MAGNE/ALUM HYDROXD 30 ML UCUP ONE (13:35)
[2018-10-31] MEDS ORDERED: NA CHLORIDE 0.9% 1,000 ML ONE (13:35)
[2018-10-31] MEDS ORDERED: LIDOCAINE VISCOUS 2% SOLN 15 ML UDC ONE (13:36)
[2018-10-31 14:13] LABS: ALT/SGPT 27 U/L (12-78); AST/SGOT 22 U/L (15-37); Albumin 3.1 g/dL (3.4-5.0); Alkaline Phosphatase 46 U/L (45-117); BUN Blood Urea Nitrogen 7 mg/dL (7-18); Bicarbonate 24 mmol/L (21-32); Bilirubin Direct < 0.1 mg/dL (0-0.2); Bilirubin Total 0.2 mg/dL (0.2-1.0); Glucose Level 80 mg/dL (74-106); Lipase 63 U/L (73-393); Potassium 3.4 mmol/L (3.5-5.1); Protein, Total 6.6 g/dL (6.4-8.2); Sodium Level 137 mmol/L (136-145)
--- NOTE | 2018-10-31 14:27 | ER ---
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 Pt c/o upper abd pain that began this morning. Denies vaginal bleeding. Transition of care: patient was not received from another setting of care. Onset of symptoms was October 31, 2018. Risk Assessment: Do you want to hurt yourself or someone else? Patient reports no desire to harm self or others. Initial Sepsis Screen: Does the patient meet any 2 criteria? No. Patient's initial sepsis screen is negative. Does the patient have a suspected source of infection? No. Patient's initial sepsis screen is negative. Care prior to arrival: None. 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 - Social history:: Smoking status: Patient/guardian denies using tobacco, Patient/guardian denies using alcohol, street drugs, The patient lives with family. - Ebola Screening: : No symptoms or risks identified at this time. - Family history:: not pertinent. Screenin:35 Abuse screen: Denies threats or abuse. Denies injuries from another. Nutritional ls4 screening: No deficits noted. Tuberculosis screening: No symptoms or risk factors identified. Fall Risk None identified. Assessment: 12:50 General: Appears in no apparent distress. uncomfortable, Behavior is calm, cooperative, jl7 appropriate for age. Pain: Complains of pain in epigastric area Pain does not radiate. Pain currently is 8 out of 10 on a pain scale. Quality of pain is described as "I can't really explain it, it just hurts." Pain began 1 day ago. Is continuous. Neuro: Level of Consciousness is awake, alert, obeys commands, Oriented to person, place, time, situation. Cardiovascular: Patient's skin is warm and dry. Respiratory: Airway is patent Respiratory effort is even, unlabored, Respiratory pattern is regular, symmetrical. GI: Abdomen is flat, non-distended. : No signs and/or symptoms were reported regarding the genitourinary system. EENT: No signs and/or symptoms were reported regarding the EENT system. Derm: Skin is pink, warm \\T\\ dry. Musculoskeletal: No signs and/or symptoms reported regarding the musculoskeletal system. 14:00 Reassessment: Patient appears in no apparent distress at this time. Patient and/or jl7 family updated on plan of care and expected duration. Pain level reassessed. Patient is alert, oriented x 3, equal unlabored respirations, skin warm/dry/pink. Vital Signs: 12:07 BP 124 / 74; Pulse 85; Resp 18 S; Temp 98.4(TE); Pulse Ox 100% on R/A; Weight 78.47 kg aa5 (M); Height 5 ft. 7 in. (170.18 cm) (R); Pain 2/10; 14:00 BP 122 / 73; Pulse 84; Resp 16 S; Pulse Ox 100% on R/A; jl7 12:07 Body Mass Index 27.10 (78.47 kg, 170.18 cm) aa5 ED Course: 11:53 Patient arrived in ED. mr 11:54 out of town, doctor is Private Physician. mr 12:04 Arm band placed on. aa5 12:06 Triage completed. aa5 12:35 No provider procedures requiring assistance completed. ls4 12:48 Sherrell Tam, SHARYN is Primary Nurse. jl7 12:48 Oscar Byrne MD is Attending Physician. ma2 12:50 Patient has correct armband on for positive identification. Placed in gown. Bed in low jl7 position. Call light in reach. Side rails up X 1. Pulse ox on. NIBP on. Warm blanket given. 12:50 Initial lab(s) drawn, by me, sent to lab. Urine collected: clean catch specimen, jl7 cloudy. Inserted saline lock: 22 gauge in right antecubital area, using aseptic technique. Blood collected. 14:51 IV discontinued, intact, bleeding controlled, No redness/swelling at site. Pressure jl7 dressing applied. Administered Medications: 13:25 Drug: GI Cocktail without - (Maalox Suspension 30 ml, Lidocaine Liquid 2 % 15 jl7 ml) Route: PO; 14:50 Follow up: Response: No adverse reaction; Pain is decreased jl7 13:30 Drug: NS 0.9% 1000 ml Route: IV; Rate: 1 bolus; Site: right antecubital; jl7 14:30 Follow up: IV Status: Completed infusion; IV Intake: 1000ml jl7 Intake: 14:30 IV: 1000ml; Total: 1000ml. jl7 Outcome: 14:27 Discharge ordered by . frannie 14:51 Discharged to home ambulatory. jl7 14:51 Condition: stable 14:51 Discharge instructions given to patient, family, Instructed on discharge instructions, follow up and referral plans. medication usage, Demonstrated understanding of instructions, follow-up care, medications, Prescriptions given X 2. 14:52 Patient left the ED. 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 Pt c/o upper abd pain that began this morning. aa5 12:37 12:35 Patient has correct armband on for positive identification. Placed in gown. Bed ls4 in low position. Call light in reach. Side rails up X 1. ls4
--- NOTE | 2018-10-31 14:27 | EDPHYS ---
Physician Documentation [facility] Name: Nisreen Norman Age: 22 yrs Sex: Female : 1995 Arrival Date: 10/31/2018 Time: 11:53 Bed 15 Private MD: out of town, doctor ED Physician Oscar Byrne HPI: 10/31 13:15 This 22 yrs old Female presents to ER via Ambulatory with complaints of 12 wks ma2 , Vomiting, Abdominal Pain. 13:15 The patient presents to the emergency department with abdominal pain, of the epigastric ma2 area. Onset: The symptoms/episode began/occurred gradually, 2 week(s) ago. Associated signs and symptoms: Pertinent negatives: belching, diarrhea, GI bleeding, nausea. Severity of symptoms: At their worst the symptoms were mild in the emergency department the symptoms are unchanged have resolved. The patient has experienced similar episodes in the past. 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 - Social history:: Smoking status: Patient/guardian denies using tobacco, Patient/guardian denies using alcohol, street drugs, The patient lives with family. - Ebola Screening: : No symptoms or risks identified at this time. - Family history:: not pertinent. ROS: 13:15 Constitutional: Negative for fever, chills, and weight loss. ma2 13:15 Abdomen/GI: Positive for abdominal pain, vomiting, Negative for nausea, constipation, rectal pain, bowel incontinence. 13:15 All other systems are negative. Exam: 13:15 Constitutional: This is a well developed, well nourished patient who is awake, alert, ma2 and in no acute distress. Chest/axilla: Normal chest wall appearance and motion. Nontender with no deformity. No lesions are appreciated. Cardiovascular: Regular rate and rhythm with a normal S1 and S2. No gallops, murmurs, or rubs. Normal PMI, no JVD. No pulse deficits. Respiratory: Lungs have equal breath sounds bilaterally, clear to auscultation and percussion. No rales, rhonchi or wheezes noted. No increased work of breathing, no retractions or nasal flaring. Abdomen/GI: Soft, non-tender, with normal bowel sounds. No distension or tympany. No guarding or rebound. No evidence of tenderness throughout. Back: No spinal tenderness. No costovertebral tenderness. Full range of motion. MS/ Extremity: Pulses equal, no cyanosis. Neurovascular intact. Full, normal range of motion. Neuro: Awake and alert, GCS 15, oriented to person, place, time, and situation. Cranial nerves II-XII grossly intact. Motor strength 5/5 in all extremities. Sensory grossly intact. Cerebellar exam normal. Normal gait. Vital Signs: 12:07 BP 124 / 74; Pulse 85; Resp 18 S; Temp 98.4(TE); Pulse Ox 100% on R/A; Weight 78.47 kg aa5 (M); Height 5 ft. 7 in. (170.18 cm) (R); Pain 2/10; 14:00 BP 122 / 73; Pulse 84; Resp 16 S; Pulse Ox 100% on R/A; jl7 12:07 Body Mass Index 27.10 (78.47 kg, 170.18 cm) aa5 MDM: 12:48 Patient medically screened. [facility] 13:15 Differential diagnosis: gastritis, viral gastroenteritis, gastroenteritis. [facility] 14:26 Data reviewed: vital signs, nurses notes. Counseling: I had a detailed discussion with ma2 the patient and/or guardian regarding: the historical points, exam findings, and any diagnostic results supporting the discharge/admit diagnosis, the presence of at least one elevated blood pressure reading (>120/80) during this emergency department visit. Response to treatment: the patient's symptoms have resolved after treatment. ED course: taks abx fro uti, vs wnl tolerate po us wnl 2 wks ago . 10/31 13:04 Order name: Basic Metabolic Panel; Complete Time: 14:25 nm2 10/31 13:04 Order name: CBC with Diff; Complete Time: 14:25 nm2 10/31 13:04 Order name: Creatinine for Radiology; Complete Time: 14:25 nm2 10/31 13:04 Order name: Hepatic Function; Complete Time: 14:25 nm2 10/31 13:04 Order name: Lipase; Complete Time: 14: nm2 10/31 13:10 Order name: Urine Dipstick--Ancillary (enter results) 10/31 13:04 Order name: IV Saline Lock; Complete Time: 13:30 [facility] 10/31 13:04 Order name: Labs collected and sent; Complete Time: 13:30 [facility] 10/31 13:04 Order name: Urine Dipstick-Ancillary (obtain specimen); Complete Time: 13:12 [facility] 10/31 13:10 Order name: Urine --Ancillary (enter results) 10/31 13:51 Order name: HCG-Quantitative nm2 Administered Medications: 13:25 Drug: GI Cocktail without - (Maalox Suspension 30 ml, Lidocaine Liquid 2 % 15 jl7 ml) Route: PO; 14:50 Follow up: Response: No adverse reaction; Pain is decreased 7 13:30 Drug: NS 0.9% 1000 ml Route: IV; Rate: 1 bolus; Site: right antecubital; jl7 14:30 Follow up: IV Status: Completed infusion; IV Intake: 1000ml 7 Disposition: 10/31/18 14:27 Discharged to Home. Impression: Gastro-esophageal reflux disease. - Condition is Stable. - Discharge Instructions: Gastroesophageal Reflux Disease, Adult. - Prescriptions for pyridoxine (bulk) - take 25 milligram by ORAL route 3 times per day; 90 tablet. Benadryl 25 mg Oral Capsule - take 1 capsule by ORAL route every 6 hours As needed; 30 tablet. - Medication Reconciliation Form, Thank You Letter, Antibiotic Education, Prescription Opioid Use form. - Follow up: Private Physician; When: Tomorrow; Reason: Continuance of care. Signatures: Dispatcher [employer] [facility] Claudine Oviedo RN RN aa5 Sherrell Tam RN RN jl7 sOcar Byrne MD MD ma2 Corrections: (The following items were deleted from the chart) 14:52 14:27 10/31/2018 14:27 Discharged to Home. Impression: Gastro-esophageal reflux jl7 disease. Condition is Stable. Prescriptions for pyridoxine (bulk) - take 25 milligram by ORAL route 3 times per day; 90 tablet, Benadryl 25 mg Oral Capsule - take 1 capsule by ORAL route every 6 hours As needed; 30 tablet. and Forms are Medication Reconciliation Form, Thank You Letter, Antibiotic Education, Prescription Opioid Use. Follow up: Private Physician; When: Tomorrow; Reason: Continuance of care. ma2
[2018-10-31 20:27] LABS: Urine Blood NEGATIVE (NEG); Urine Glucose NEGATIVE (NEG); Urine Protein NEGATIVE (NEG)
== END 2018-10-31 14:52 | disposition home or self-care (01) ==
LOC: ER 11:50
DX: K21.9 Gastro-esophageal reflux disease without esophagitis (principal); Z3A.12 12 weeks gestation of pregnancy
CPT/HCPCS: 36415; 80048; 80076; 81003; 81025; 83690; 84702; 85025; 96360; 99284; J7030

== ENCOUNTER 2018-11-06 12:35 | Emergency (ER) | payer OTHER ==
--- NOTE | 2018-11-06 13:55 | ER ---
Nurse's Notes [facility] Name: Nisreen Norman Age: 22 yrs Sex: Female : 1995 Arrival Date: 11/06/2018 Time: 12:38 Bed 11 Private MD: Diagnosis: Acute pharyngitis Presentation: 11/06 12:54 Presenting complaint: Patient states: I have had sore throat without cough/congestion la1 for the last 4-5 days. Pt is 3 months . Transition of care: patient was not received from another setting of care. Onset of symptoms was November 06, 2018. Risk Assessment: Do you want to hurt yourself or someone else? Patient reports no desire to harm self or others. Initial Sepsis Screen: Does the patient meet any 2 criteria? No. Patient's initial sepsis screen is negative. Does the patient have a suspected source of infection? No. Patient's initial sepsis screen is negative. Care prior to arrival: None. 12:54 Method Of Arrival: Ambulatory la1 12:54 Acuity: CAESAR 4 la1 Triage Assessment: 13:30 General: Appears in no apparent distress. Behavior is calm, cooperative. Pain: iw Complains of pain in throat. 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 - Social history:: Smoking status: Patient/guardian denies using tobacco. - Ebola Screening: : No symptoms or risks identified at this time. Screenin:50 Abuse screen: Denies threats or abuse. Denies injuries from another. Nutritional iw screening: No deficits noted. Tuberculosis screening: No symptoms or risk factors identified. Fall Risk None identified. Assessment: 13:10 Respiratory: Airway is patent Respiratory effort is even, unlabored, Breath sounds are iw clear bilaterally. EENT: Throat is reddened bilaterally. Vital Signs: 12:56 BP 123 / 78; Pulse 86; Resp 18; Temp 97.5; Pulse Ox 98% on R/A; Weight 79.38 kg; Height la1 5 ft. 7 in. (170.18 cm); 12:56 Body Mass Index 27.41 (79.38 kg, 170.18 cm) la1 ED Course: 12:38 Patient arrived in ED. as 12:42 Timmy Arnett NP is PHCP. pm1 12:42 Hernandez Jessica MD is Attending Physician. pm1 12:55 Triage completed. la1 12:56 Arm band placed on left wrist. la1 13:00 Patient has correct armband on for positive identification. iw 13:51 Leyda Foster, RN is Primary Nurse. iw 14:09 No provider procedures requiring assistance completed. Patient did not have IV access iw during this emergency room visit. Administered Medications: No medications were administered Outcome: 13:54 Discharge ordered by . pm1 14:08 Discharged to home ambulatory. iw 14:08 Condition: good 14:08 Discharge instructions given to patient, Instructed on discharge instructions, follow up and referral plans. Demonstrated understanding of instructions, follow-up care. 14:09 Patient left the ED. iw Signatures: Zoey Cannon as Leyda Foster, RN RN iw Messi Cornelius RN RN la1 Timmy Arnett NP BOARD MIXER TENDER pm1 Corrections: (The following items were deleted from the chart) 12:56 12:54 Presenting complaint: Patient states: I have had sore throat without la1 cough/congestion for the last 4-5 days. la1
--- NOTE | 2018-11-06 13:55 | EDPHYS ---
Physician Documentation [facility] Name: Nisreen Norman Age: 22 yrs Sex: Female : 1995 Arrival Date: 11/06/2018 Time: 12:38 Bed 11 Private MD: ED Physician Hernandez Jessica HPI: 11/06 13:32 This 22 yrs old Female presents to ER via Ambulatory with complaints of Sore pm1 Throat. 13:32 The patient presents with sore throat. The patient describes throat pain as raw, pm1 scratchy. Onset: The symptoms/episode began/occurred 4 day(s) ago. Severity of symptoms: in the emergency department the symptoms are unchanged. Modifying factors: the symptoms are aggravated by swallowing, Patient's oral intake status: good. Associated signs and symptoms: Pertinent negatives cough, fever, vomiting. The patient has not experienced similar symptoms in the past. The patient has not recently seen a physician. Patient presented to the ER with complaints of sore throat. Has a prescription for Augmentin from July that she wants to know if she can take for her sore throat. Had a sore throat in July and was prescribed the Augmentin at that time. Took about 3 days worth and it resolved her sore throat so she stopped taking it. 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 - Social history:: Smoking status: Patient/guardian denies using tobacco. - Ebola Screening: : No symptoms or risks identified at this time. ROS: 13:36 Constitutional: Negative for fever, chills, and weight loss, Eyes: Negative for injury, pm1 pain, redness, and discharge. 13:36 Neck: Negative for injury, pain, and swelling, Cardiovascular: Negative for chest pain, palpitations, and edema, Respiratory: Negative for shortness of breath, cough, wheezing, and pleuritic chest pain, Abdomen/GI: Negative for abdominal pain, nausea, vomiting, diarrhea, and constipation, Back: Negative for injury and pain, : Negative for injury, bleeding, discharge, and swelling, MS/Extremity: Negative for injury and deformity, Skin: Negative for injury, rash, and discoloration, Neuro: Negative for headache, weakness, numbness, tingling, and seizure. 13:36 ENT: Positive for sore throat, Negative for drainage from ear(s), ear pain, difficulty swallowing, difficulty handling secretions, hoarseness. Exam: 13:36 Constitutional: This is a well developed, well nourished patient who is awake, alert, pm1 and in no acute distress. Head/Face: Normocephalic, atraumatic. Eyes: Pupils equal round and reactive to light, extra-ocular motions intact. Lids and lashes normal. Conjunctiva and sclera are non-icteric and not injected. Cornea within normal limits. Periorbital areas with no swelling, redness, or edema. ENT: Nares patent. No nasal discharge, no septal abnormalities noted. Tympanic membranes are normal and external auditory canals are clear. Oropharynx with no redness, swelling, or masses, exudates, or evidence of obstruction, uvula midline. Mucous membranes moist. Neck: Trachea midline, no thyromegaly or masses palpated, and no cervical lymphadenopathy. Supple, full range of motion without nuchal rigidity, or vertebral point tenderness. No Meningismus. Chest/axilla: Normal chest wall appearance and motion. Nontender with no deformity. No lesions are appreciated. Cardiovascular: Regular rate and rhythm with a normal S1 and S2. No gallops, murmurs, or rubs. Normal PMI, no JVD. No pulse deficits. Respiratory: Lungs have equal breath sounds bilaterally, clear to auscultation and percussion. No rales, rhonchi or wheezes noted. No increased work of breathing, no retractions or nasal flaring. Abdomen/GI: Soft, non-tender, with normal bowel sounds. No distension or tympany. No guarding or rebound. No evidence of tenderness throughout. Back: No spinal tenderness. No costovertebral tenderness. Full range of motion. Skin: Warm, dry with normal turgor. Normal color with no rashes, no lesions, and no evidence of cellulitis. MS/ Extremity: Pulses equal, no cyanosis. Neurovascular intact. Full, normal range of motion. 13:36 Neuro: Orientation: is normal, Motor: is normal, moves all fours. Vital Signs: 12:56 BP 123 / 78; Pulse 86; Resp 18; Temp 97.5; Pulse Ox 98% on R/A; Weight 79.38 kg; Height la1 5 ft. 7 in. (170.18 cm); 12:56 Body Mass Index 27.41 (79.38 kg, 170.18 cm) la1 MDM: 13:48 Patient medically screened. pm1 13:53 Data reviewed: vital signs. Data interpreted: Pulse oximetry: on room air is 98 %. pm1 Interpretation: normal. Counseling: I had a detailed discussion with the patient and/or guardian regarding: the historical points, exam findings, and any diagnostic results supporting the discharge/admit diagnosis, lab results, the need for outpatient follow up, to return to the emergency department if symptoms worsen or persist or if there are any questions or concerns that arise at home. 11/06 12:42 Order name: Strep; Complete Time: 13:36 pm1 11/06 13:32 Order name: Throat Culture EDMS Administered Medications: No medications were administered Disposition: 11/07 11:54 Co-signature as Attending Physician, Hernandez Jessica MD. Disposition: 11/06/18 13:54 Discharged to Home. Impression: Acute pharyngitis. - Condition is Stable. - Discharge Instructions: Pharyngitis. - Work release form, Medication Reconciliation Form, Thank You Letter, Antibiotic Education form. - Follow up: Emergency Department; When: As needed; Reason: Worsening of condition. Follow up: Private Physician; When: 2 - 3 days; Reason: Recheck today's complaints, Continuance of care, Re-evaluation by your physician. - Problem is new. - Symptoms have improved. Signatures: Dispatcher [employer] EDMS Leyda Foster RN RN Messi Cornelius RN RN la1 Timmy Arnett, [employer]NER COMPOUNDER [employer]NER COMPOUNDER pm1 Hernandez Jessica MD MD Corrections: (The following items were deleted from the chart) 11/06 14:09 13:54 11/06/2018 13:54 Discharged to Home. Impression: Acute pharyngitis. Condition is iw Stable. Forms are Medication Reconciliation Form, Thank You Letter, Antibiotic Education, Prescription Opioid Use. Follow up: Emergency Department; When: As needed; Reason: Worsening of condition. Follow up: Private Physician; When: 2 - 3 days; Reason: Recheck today's complaints, Continuance of care, Re-evaluation by your physician. Problem is new. Symptoms have improved. pm1
== END 2018-11-06 14:09 | disposition home or self-care (01) ==
LOC: ER 12:35
DX: J02.9 Acute pharyngitis, unspecified (principal); Z3A.12 12 weeks gestation of pregnancy
CPT/HCPCS: 87070; 87081; 99281